=== PATIENT | male | born 1965 | race Two or more races ===

== ENCOUNTER 2020-04-06 07:06 | Inpatient (IN) | payer OTHER ==
[2020-04-06] VITALS (16 sets, daily range): BP systolic 127–154; BP diastolic 76–96
[~2020-04-06] VITALS: Ht 170.2 cm; Wt 106.1 kg
[~2020-04-06 07:06] MED LIST: GEMFIBROZIL600 MG ORAL; LOSARTAN POTASS50 MG ORAL; METFORMIN HCL1000 M1 ORAL; ceFAZolin sod 2 GM in NS 55 ML IVPB ONE
--- NOTE | 2020-04-06 07:20 | Pre-Procedure Note/Attestation ---
Pre-Procedure Note/Attestation Complete Prior to Procedure Planned Procedure: not applicable Procedure Narrative: Anterior cervical discectomy and fusion of C56 and C67 Indications for Procedure Pre-Operative Diagnosis: C56,67 herniation Attestation I attest that I discussed the nature of the procedure; its benefits; risks and complications; and alternatives (and the risks and benefits of such alternatives ), prior to the procedure, with the patient (or the patient's legal insurance verification representative). I attest that, if there was a reasonable possibility of needing a blood transfusion, the patient (or the patient's legal insurance verification representative) was given the [facility] standardized written summary, pursuant to the Tuan Shikha Blood Safety Act ([place] Health and Safety Code # 1645, as amended). I attest that I re-evaluated the patient just prior to the surgery and that there has been no change in the patient's H&P, except as documented below: Angel Mercado MD Apr 06, 2020 07:20
--- NOTE | 2020-04-06 07:21 | Brief Operative Note ---
Immediate Post Operative Note Operative Note Chief Complaint: neck pain and radiculopathy Pre-op Diagnosis: C56,67 herniation Procedure: Anterior cervical discectomy and fusion of C56 and C67 Post-op Diagnosis: same as pre-op Findings: consistent w/pre-op dx studies Surgeon: Rogelio Secretary Administrative Assistant: Jeff Anesthesia: general Specimen: none Complications: none Condition: stable Fluids: IVF Estimated Blood Loss: minimal Drains: none Implant(s) used?: Yes - nuvasive interlock c sz 6 screws 13mmx6 Angel Mercado MD Apr 06, 2020 07:21
[2020-04-06] MEDS ORDERED: HYDROcodone/Acetamin 7.5/325 tab ORAL PRN ×3 (07:30→08:30)
[2020-04-06] MEDS ORDERED: HYDROmorphone 1mg/ml Carpuject IVP PRN (07:30)
[2020-04-06] MEDS ORDERED: Metoclopramide 10mg/2ml Inj IVP PRN (07:30)
[2020-04-06] MEDS ORDERED: Morphine Sulfate 4mg/ml Inj (IV USE ONLY) IV PRN ×2 (07:30)
[2020-04-06] MEDS ORDERED: Naloxone 0.4mg/ml Inj IVP PRN (07:30)
[2020-04-06] MEDS ORDERED: Milk of Magnesia 30ml Ud ORAL PRN (07:30)
[2020-04-06] MEDS ORDERED: HYDROcodone/Acetamin 5/325 tab ORAL PRN ×2 (07:30→08:30)
[2020-04-06] MEDS ORDERED: Chloraseptic Spray 20mL Bottle ORAL PRN (07:30)
[2020-04-06] MEDS ORDERED: Morphine Sulfate 2mg/ml Inj(IV/IM USE ONLY) IV PRN (07:30)
[2020-04-06] MEDS ORDERED: LR 1000ml 1,000 ML IVLG SCH (08:19)
--- NOTE | 2020-04-06 08:23 | Anethesia Preoperative Eval ---
Anesthesia Pre-op PMH/ROS General Date of Evaluation: Apr 06, 2020 Time of Evaluation: 09:19 Anesthesiologist: Cele ASA Score: ASA 3 Mallampati Score Class I : Soft palate, uvula, fauces, pillars visible Class II: Soft palate, uvula, fauces visible Class III: Soft palate, base of uvula visible Class IV: Only hard plate visible Mallampati Classification: Class II Surgeon: Ryan Diagnosis: Neck Pain Surgical Procedure: ACDF C5-6, C6-7 Anesthesia History: none Family History: no anesthesia problems Allergies: Coded Allergies: No Known Allergies (Unverified , 04/03/20) Medications: see eMAR Patient NPO?: Yes Past Medical History Cardiovascular: Reports: HTN, other - HL Endocrine: Reports: DM Other: obesity - BMI 38 PSxH Narrative: R Knee Arthroscopy Anesthesia Pre-op Phys. Exam Physician Exam Constitutional: NAD Neurologic: CN 2-12 intact Cardiovascular: RRR Respiratory: CTA Gastrointestinal: S/NT/ND Airway Exam Mallampati Score: Class II MO: full ROM: limited Teeth: missing, intact Anesthesia Pre-op A/P Risk Assessment & Plan Assessment: ASA 3 Plan: GA, SED, GlideScope Status Change Before Surgery: No Pre-Antibiotics Dru Grams Ancef IV Given Within 1 Hr of Incision: Yes Time Given: 09:51 Brodie Oakley MD Apr 06, 2020 08:23
[2020-04-06] MEDS ORDERED: DiphenhydrAMINE 50mg/ml Inj IVP PRN (08:30)
[2020-04-06] MEDS ORDERED: LORazepam Inj 2mg/ml 1ml IV PRN (08:30)
[2020-04-06] MEDS ORDERED: Hydromorphone 0.5mg/0.5ml inj IVP PRN (08:30)
[2020-04-06] MEDS ORDERED: Sodium Chloride 10ml vial INJ ONE (08:30)
[2020-04-06] MEDS ORDERED: oxyCODONE HCL/Acetaminophen 5/325mg ORAL PRN (08:30)
[2020-04-06] MEDS ORDERED: Atropine Sulfate 0.4mg/ml inj IVP PRN (08:30)
[2020-04-06] MEDS ORDERED: fentaNYL 100 mcg/2 mL IV PRN (08:30)
[2020-04-06] MEDS ORDERED: Midazolam 2mg/2ml Inj IVP PRN (08:30)
[2020-04-06] MEDS ORDERED: Lidocaine 1% MPF 10mg/ml 5ml ONE ×2 (08:30→09:23)
[2020-04-06] MEDS ORDERED: Ketorolac 30mg Inj IV PRN ×2 (08:30)
[2020-04-06] MEDS ORDERED: Acetaminophen (Non formulary) 100 ML IV ONE (08:30)
[2020-04-06] MEDS ORDERED: Meperidine 25mg/0.5ml Inj (FOR RIGORS ONLY) IV PRN (08:30)
[2020-04-06] MEDS ORDERED: Labetalol 5mg/ml 20ml vial IV PRN (08:30)
[2020-04-06] MEDS ORDERED: fentaNYL 100 mcg/2 mL IV ONE ×2 (08:31→10:42)
[2020-04-06] MEDS ORDERED: propofoL 1,000mg/100ml IV ONE (09:00)
[2020-04-06] MEDS ORDERED: Sterile Water Irrig 1000ml IRRIG ONE (09:00)
[2020-04-06] MEDS ORDERED: Neostigmine 1mg/ml 10ml Inj ONE (09:00)
[2020-04-06] MEDS ORDERED: LR 1000ml ONE (09:00)
[2020-04-06] MEDS ORDERED: Rocuronium Bromide 100mg/10ml Inj IV ONE (09:00)
[2020-04-06] MEDS ORDERED: NS Irrig 1000ml ONE (09:00)
[2020-04-06] MEDS ORDERED: Gelfoam Size TOPIC ONE (09:24)
[2020-04-06] MEDS ORDERED: Vancomycin 1gm vial IVPB ONE (09:24)
[2020-04-06] MEDS ORDERED: Thrombin 5000 units TOPIC ONE (09:24)
[2020-04-06] MEDS ORDERED: Bacitracin 50000 Units Vial ONE (09:25)
[2020-04-06] MEDS ORDERED: Bupivacaine w/Epi 0.5% 30ml Vial INJ ONE (09:25)
--- NOTE | 2020-04-06 09:31 | 48 Hour Post Anesthesia Eval ---
Post Anesthesia Evaluation Procedure: ACDF C5-6, C6-7 Date of Evaluation: Apr 06, 2020 Time of Evaluation: 14:34 Blood Pressure Systolic: 143 0: 82 Pulse Rate: 63 Respiratory Rate: 18 Temperature (Fahrenheit): 98 O2 Sat by Pulse Oximetry: 99 Airway: patent Nausea: No Vomiting: No Pain Intensity: 2 Hydration Status: adequate Cardiopulmonary Status: Stable Mental Status/LOC: patient returned to baseline Follow-up Care/Observations: 0 Post-Anesthesia Complications: 0 Follow-up care needed: N/A Brodie Oakley MD Apr 06, 2020 09:31
--- NOTE | 2020-04-06 09:31 | Immediate Post-Op Evaluation ---
Immediate Post-Op Evalulation Immediate Post-Op Evalulation Procedure: ACDF C5-6, C6-7 Date of Evaluation: Apr 06, 2020 Time of Evaluation: 12:28 IV Fluids: 1000 LR Blood Products: 0 Estimated Blood Loss: 50 Urinary Output: 320 Blood Pressure Systolic: 147 Blood Pressure Diastolic: 85 Pulse Rate: 64 Respiratory Rate: 16 O2 Sat by Pulse Oximetry: 100 Temperature (Fahrenheit): 97.6 Pain Score (1-10): 2 Nausea: No Vomiting: No Complications 0 Patient Status: awake, reacts, patent, extubated, none Hydration Status: adequate Dru Grams Ancef IV Given Within 1 Hr of Incision: Yes Time Given: 09:51 Brodie Oakley MD Apr 06, 2020 09:31
[2020-04-06] MEDS ORDERED: Lidocaine 1% Plain 30 ml INJ ONE (11:19)
[2020-04-06] MEDS ORDERED: Glycopyrrolate 0.2mg/ml 1ml Vial ONE (11:23)
[2020-04-06] MEDS ORDERED: Surgicel 4in x 8in TOPIC ONE (11:36)
--- NOTE | 2020-04-06 14:00 | NUR ---
NURSE NOTES: Patient received from PACU via bed to room 312-2, on O2 3LNC, in stable condition. Patient sleeping, arousable to name. VSS. Anterior right neck, dermabond, intact, no drainage noted. Ice compress in place. IVF infusing to LH, site asymptomatic. Bilateral SCDs on. Neuros intact, skin warm, wiggles, pulses palpable, hand grasps/pedal pushes equal 3/5, no NT. Called for IS. Clear liquids provided. Urinal provided and instructed on. Denies pain, SOB, NV at this time. Spouse at bedside. Oriented patient to room, call light and medical equipment. Bed in lowest position, will continue to monitor.
--- NOTE | 2020-04-06 14:26 | NUR ---
CASE MANAGEMENT: INITIAL REVIEW 55YR OLD MALE HERE FOR SCHEDULE SURGERY CC:NECK PAIN AND RADICULOPATHY SI:HERNIATION C56, 67 97.1 63 20 136/76 96% ON RA IS:IN SURGERY NOW ANTERIOR CERVICAL DISCECTOMY AND FUSION OF C56 AND C67 \: 3E MED SURG UNIT DCP: HOME WHEN STABLE PLAN: ENCOURAGE AMBULATION SCD'S WHILE IN BED HYDRATE ADVANCE DIET TOLERATED PAIN CONTROL
--- NOTE | 2020-04-06 14:54 | Diagnostic Imaging Report ---
XRAY C Spine 2-3v CLINICAL HISTORY: Neck pain. COMPARISON: None FINDINGS: Fluoroscopy independent procedure performed for cervical fusion. 37.2 seconds of fluoroscopy time utilized by the ordering physician. Total cumulative dose is 11.58 mGy and 0.99120 Gy.cm2. Total of 5 spot images are obtained . IMPRESSION: FLUOROSCOPY GUIDED PROCEDURE.
[2020-04-06] MEDS: NS w/KCl 20mEq 1000ml 1,000 ML IV SCH (15:08)
--- NOTE | 2020-04-06 16:30 | Operative Note - Dictated ---
DATE OF OPERATION: 04/06/2020 SURGEON: Angel Mercado MD, orthopedic spine surgeon. SENIOR STATISTICAL PROGRAMMER: COLEEN Cohen. PREOPERATIVE DIAGNOSES: 1. Intractable neck pain. 2. Radiculopathy. 3. Herniation, C5-C6, C6-C7. 4. Neural foraminal stenosis C5-C6, C6-C7. 5. Stenosis. POSTOPERATIVE DIAGNOSES: 1. Intractable neck pain. 2. Radiculopathy. 3. Herniation, C5-C6, C6-C7. 4. Neural foraminal stenosis C5-C6, C6-C7. 5. Stenosis. PROCEDURE PERFORMED: 1. Anterior cervical discectomy and fusion of C5-C6, C6-C7 using Nuvasive Interlock-C size 6 mm cage with 1 mL of Osteocel allograft bone and two screws of 13 mm length. 2. Use of intraoperative microscope. 3. Motor evoked potential monitoring. 4. Somatosensory evoked potential monitoring. 5. Supervision and interpretation of fluoroscopy. COMPLICATIONS: None. ANESTHESIA: General. ESTIMATED BLOOD LOSS: Less than 100 mL. INDICATIONS FOR SURGERY: This patient is a 55-year-old male who has a history of intractable neck pain, radiculopathy, herniation, C5-C6, C6-C7, neural foraminal stenosis C5-C6, C6-C7, stenosis. We tried a course of conservative management but despite this course there was still a significant component of persistent, recalcitrant neck pain and arm pain. The MRI demonstrated significant neural foraminal compromise secondary to disc herniations at C5-C6, C6-C7. We had a long discussion with Arnold regarding the risks and benefits of surgery. Our discussion included but was not limited to nonoperative management, chiropractic management, another epidural steroid injection as well definitive management in the form of surgery. We recommended an anterior cervical discectomy and fusion of C5-C6, C6-C7 using Nuvasive Interlock-C size 6 mm cage, with 1 mL of allograft Osteocel bone, and two screws of 13 mm length as final definitive management. We reviewed the risks and benefits of surgery with the patient. Our discussion included a comprehensive review of the clinical issues and the nature of the clinical decision. We reviewed the alternatives, including doing nothing. The patient elected to proceed accordingly with anterior cervical discectomy and fusion of C5-C6, C6-C7 using Nuvasive Interlock-C size 6 mm cage, with 1 mL of allograft Osteocel bone, and two screws of 13 mm length. We had a long discussion regarding the risks, alternatives and benefits of surgery. Our description of the risks included a discussion in person as well as a signed consent which detailed all pertinent risks from the procedure itself. Briefly, our discussion included but was not limited to infection, bleeding, pseudarthrosis, spinal cord injury, neurovascular injury, dural tear, CSF leak, neuropathy, paralysis, permanent weakness/drop foot/drop arm, paresthesias, blindness, palsy and weakness. The patient understood there may be a need for a revision surgery or additional procedures. Approach-related complications including dysphonia, dysphagia, blindness, permanent vocal cord and neural injury, hematoma, swallowing and breathing difficulty. Medical complications were reviewed including liver, kidney, shock, cardiopulmonary failure, anesthesia complications including , swelling, damage to the musculature, larynx/voice injury or loss, esophagus/throat, trachea, blood vessels and muscles/muscular sprain and lungs/pneumothorax during this surgical procedure; injury to deeper structures may be temporary or permanent. After this review of risks, the patient understood these and elected to proceed. A written and verbal consent was given. We discussed the pros and cons of all the alternatives. We discussed the uncertainties associated with the decision. Afterwards I assessed the patient's understanding and explored their preferences. All questions were answered and no guarantees were given. Medical clearance was obtained prior to surgery. INTRAOPERATIVE FINDINGS: At C5-C6: There was a large disc herniation with significant encroachment on the neural foramina and lateral recess, which is predominantly left sided. This disc herniation was first encountered after I visualized a radial tear on the left side, which was approximately 10 degrees in a cephalad to caudad direction. This tear itself was probed with a micro-set 1-B curette, which was raised to the tail end of the larger nuclear fragment, which itself was encroaching on the neural foramina posteriorly. The disc itself was soft. It was not desiccated. It was not dehydrated in anyway. That was spongy looking combination with the tear that makes me believe this is more traumatic in nature. There were anterior osteophytes on the C5 inferior vertebral body anteriorly. At C6-C7: At C6-C7, the disc itself was soft and spongy and not desiccated or dehydrated or crumbly. The herniation was left-sided as visualized in the left-sided radial tear along the posterior longitudinal ligament. This tear was probed with a micro-set 1-B curette and upon probing of this tear, I noticed a larger tail end of a nuclear fragment. This fragment was seemed to be across the nucleus pulposus and was encroaching on the left neural foramina . This was dissected with a combination of Deckers and Kerrison rongeurs. DESCRIPTION OF PROCEDURE: Under the benefit of general endotracheal anesthesia and with the assistance of the entire operative team, the patient was moved from the [facility] onto the operative table in the supine position. The head was secured and carefully positioned appropriately. Bilateral arms were secured with Gelpads and foam and all bony prominences were padded. For the bilateral lower extremities SCD and SERVANDO hose were placed for DVT prophylaxis. A surgical timeout was called which corroborated our planned procedure of anterior cervical discectomy and fusion of C5-C6, C6-C7 using Nuvasive Interlock-C size 6 mm cage, with 1 mL of allograft Osteocel bone, and two screws of 13 mm length. Preoperative antibiotics were administered within 30 minutes of the incision for antibiotic prophylaxis. Using lateral fluoroscopic radiography, the operative levels were delineated. Next the wound was prepped and draped with Chlorhexidine and sterile drapes. An incision was based on lateral fluoroscopy and we centered our incision at the C5-C6, C6-C7 interspace and next using a standard Chaparro-Olmstead anterior based approach the incision was taken down through the skin and subcutaneous tissues until the vertebral bodies and their corresponding disc spaces were visualized. A needle was placed into the interspace to confirm placement of the operative interspace and we performed the remainder of procedure under microscopic visualization. Next, using a bipolar and Bovie cautery to ensure meticulous hemostasis, the longus colli was mobilized bilaterally and retractors were placed deep to the longus colli bilaterally to address retraction. Next we turned our attention to the radical anterior discectomy. This was initially performed at C5-C6. First by using a 15 blade scalpel followed by narrow pituitaries and a micro-sect 5-B curette was used to denude the endplate of all cartilaginous tissue. Next using a Midas David AM8 drillbit the partial vertebrectomy was performed in a kebh-kh-ukvn and layer by layer fashion, and ultimately the posterior uncinate joints bilaterally and posterior osteophytic lips and margins causing central and lateral impingement were carefully denuded until visualization of the posterior longitudinal ligament was possible. An endplate preparation was performed in the exact same fashion using an intervertebral blacktop spreader, sequential distraction was obtained throughout the disc space. We saw a tear/rent in the PLL and this was carefully mobilized and dissected using a micro-set 1-B curet until we visualized a broad-based disc herniation with compression of the spinal cord as well as neural foramina which was left more than right sided. This neural foraminal compression was carefully resected using a Kerrison-1 and Kerrison-2 rongeurs until complete decompression of the spinal cord was visualized and complete decompression of the neural foramina and nerve root therein as well as the axilla and lateral margin of the nerve root was visualized and subsequently completely decompressed. The family was notified at one hour intervals throughout the procedure to provide for consistent updates. Next we turned our attention to the radical anterior discectomy at the C6-C7 level. First by using a 15 blade scalpel followed by narrow pituitaries and a micro-sect 5-B curette was used to denude the endplate of all cartilaginous tissue. Next using a Introhiveas David AM8 drillbit the partial vertebrectomy was performed in a vudy-[id number]-jgbv and layer by layer fashion, and ultimately the posterior uncinate joints bilaterally and posterior osteophytic lips and margins causing central and lateral impingement were carefully denuded until visualization of the posterior longitudinal ligament was possible. An endplate preparation was performed in the exact same fashion using an intervertebral blacktop spreader, sequential distraction was obtained throughout the disc space. We saw a tear/rent in the PLL and this was carefully mobilized and dissected using a micro-set 1-B curet until we visualized a broad-based disc herniation with compression of the spinal cord as well neural foramina which was left more than right sided. This neural foraminal compression was carefully resected using a Kerrison-1 and Kerrison-2 rongeurs until complete decompression of the spinal cord was visualized and complete decompression of the neural foramina and nerve root therein as well as the axilla and lateral margin of the nerve root was visualized and subsequently completely decompressed. We next turned our attention towards trialing our implant within the disc space. We initially tried size 5 and afterwards size 6 trial from the Nuvasive Interlock-C size 6 mm cage, with 1 mL of allograft Osteocel bone, and two screws of 13 mm length at each level, which appeared to be appropriate under AP and lateral fluoroscopy as well as in terms of its height, depth, width and lack of toggle. The PEEK polyetheretherketone interbody cages were then both packed with allograft bone from Osteocel and local autograft bone matrix. Next these were then carefully advanced and secured into their intervertebral spaces under direct visualization and with supervision of AP and lateral fluoroscopic views. We next turned our attention towards plating. Plating was performed with Nuvasive Interlock-C. A total of two screws, size 13 mm in length were inserted and confirmed under AP and lateral fluoroscopy and confirmed to be in excellent position. This was then performed at the next level, C6-C7. Plating was performed with Nuvasive Interlock-C. A total of two screws, size 13 mm in length were inserted and confirmed under AP and lateral fluoroscopy and confirmed to be in excellent position. After a finger sweep we confirmed removal of all sponges. The retractor was removed and we next turned our attention to meticulous hemostasis with FloSeal and bipolar cautery. After the sponge and needle count was again found to be correct with our second count, we next turned our attention to closure. The wound was again copiously irrigated with antibiotic impregnated saline. Closure consisted of 4-0 clear nylon for the platysma, and 6-0 clear nylon for the superficial skin. Final skin closure and dressings consisted of Dermabond. Prior to final closure, a final radiograph was obtained which demonstrated the hardware is intact with excellent position throughout. The patient tolerated the procedure well. The patient was carefully extubated after the conclusion of surgery. We discussed the findings of the surgery with the family upon completion of the case. At this point the patient was transferred to the spine floor for further observation. Angel Mercado M.D. DR: CYRUS JOB#: [id number] CC:
[2020-04-06] MEDS: ceFAZolin sod 1 GM in D5W 55 ML IV SCH (17:49)
[2020-04-06] MEDS: Docusate 100mg cap ORAL SCH (17:49)
--- NOTE | 2020-04-06 18:01 | NUR ---
NURSE NOTES: Home medications reconciled with Dr. Cabrales, all home medications ordered, as well as Insulin Sliding Scale (medium) with AC+HS bedside glucose checks, patient and spouse updated, verbalized understanding.
--- NOTE | 2020-04-06 18:30 | NUR ---
NURSE NOTES: Patient had small emesis (25 ml) , medicated with Zofran, subsided. Pain 8/10, medicated with Dilaudid 1 mg IV, pain improved to 6/10, will continue to monitor.
--- NOTE | 2020-04-06 19:47 | NUR ---
HAND-OFF: Report given to Karla GRUBBS, patient stable. Addendum: 04/06/20 at 2031 by Amara Osuna RN Endorsed patient has not voided post op yet, urinal has been provided and instructed on, informed patient spouse to let the nurse know once patient has voided and not to discard urine, verbalized understanding)
--- NOTE | 2020-04-06 19:52 | NUR ---
NURSE NOTES: Received report from HUMERA Maloney. Pt is awake, lying semi-calvin's; comfortably resting. No signs of acute distress noted. Pt denies any pain at this time. AOx4; able to make needs known. Checked IV site, line, and rate; patent and running. Ice pack on posterior and anterior of neck noted. No erythema, bleeding, or infiltration noted. Pt on 3 L NC. IS noted at bedside; pt educated on how to use. Bed at lowest position. Brakes on. Siderails up x3. Call light within reach. Will continue to monitor.
[2020-04-06] MEDS: Losartan 50mg tab ORAL SCH (20:26)
[2020-04-06] MEDS: metFORMIN 500mg tab ORAL SCH (20:26)
[2020-04-06] MEDS: NovoLOG Insulin Flexpen SUBQ SCH (20:28)
--- NOTE | 2020-04-06 21:31 | NUR ---
nurse's notes: patient has expressed his frustration that his can not stay overnight. according to the patient, nobody has explained to them pre-op about the Department of Health's directive regarding limiting visiting hours. as they are from [place], they were just dropped off here at the hospital, and has no means to drive back home. spoke with hany rivero, regarding this situation. per hany katz, we have to follow strictly TAMI to reduce spread of covid-19. this was explained to the patient SYD Benitez.
[2020-04-07] VITALS: BP 125/76
[2020-04-07] MEDS: ceFAZolin sod 1 GM in D5W 55 ML IV SCH ×2 (01:20→11:34)
[2020-04-07] MEDS: NS w/KCl 20mEq 1000ml 1,000 ML IV SCH (01:20)
[2020-04-07 03:21] VITALS: BP 117/77
[2020-04-07] MEDS: NovoLOG Insulin Flexpen SUBQ SCH ×2 (06:46→11:51)
--- NOTE | 2020-04-07 07:19 | NUR ---
HAND-OFF: Report given to HUMERA Padgett. Pt is awake and in stable condition. Plan of care endorsed.
--- NOTE | 2020-04-07 07:54 | NUR ---
NURSE NOTES: Patient awake and alert and oriented,respirations unlabored.Noted Dermabond dressing to the neck area clean.patient sitting up and eating breakfast.No complaints of difficulty swallowing.Patient able to move lower extremities.IV fluids infusing as ordered.bED ALARM IS ON,CALL LIGHT WITHIN REACH.
[2020-04-07 08:26] VITALS: BP 124/71
[2020-04-07] MEDS: Docusate 100mg cap ORAL SCH (08:29)
[2020-04-07] MEDS: Losartan 50mg tab ORAL SCH (08:30)
[2020-04-07] MEDS: metFORMIN 500mg tab ORAL SCH (08:30)
--- NOTE | 2020-04-07 09:34 | General Progress Note ---
Assessment/Plan Assessment/Plan: neck pain and radiculopathy C56,67 herniation Anterior cervical discectomy and fusion of C56 and C67 PLAN 1. incentive spirometry 2. SCD 3. PT evaluation and therapy 4. Hydration 5. Pain management 6. discharge once stable with outpatient follow up Subjective Allergies: Coded Allergies: No Known Allergies (Unverified , 04/03/20) Subjective asked to follow up postop ++pain Objective Last 24 Hour Vital Signs Date Time Temp Pulse Resp B/P (MAP) Pulse Ox O2 Delivery O2 Flow Rate FiO2 04/07/20 08:30 124/71 04/07/20 08:26 98.6 69 20 124/71 (88) 96 04/07/20 03:21 98.6 86 20 117/77 (90) 98 04/07/20 00:00 98.6 82 20 125/76 (92) 95 04/06/20 21:00 97.9 71 18 132/77 (95) 99 04/06/20 21:00 Nasal Cannula 3.0 04/06/20 20:26 132/77 04/06/20 17:00 74 16 127/81 (96) 98 04/06/20 16:00 98.3 72 16 129/81 (97) 98 04/06/20 15:00 72 16 130/88 (102) 99 04/06/20 14:30 69 16 137/78 (97) 99 04/06/20 14:00 97.4 69 20 142/78 (99) 99 04/06/20 13:42 97.9 71 15 143/77 98 Nasal Cannula 3 04/06/20 13:27 67 19 138/76 98 Nasal Cannula 3 04/06/20 13:12 65 14 151/83 100 Simple Mask 6 04/06/20 12:57 66 15 154/91 100 Simple Mask 6 04/06/20 12:44 67 14 149/96 100 Simple Mask 6 04/06/20 12:34 61 14 149/95 100 Simple Mask 6 04/06/20 12:24 61 16 151/92 100 Simple Mask 6 04/06/20 12:19 63 15 142/82 100 Simple Mask 6 04/06/20 12:15 63 18 99 04/06/20 12:14 97.0 62 12 147/85 100 Simple Mask 6 04/06/20 12:14 64 16 100 Intake and Output 04/06/20 04/07/20 19:00 07:00 Intake Total 1800 ml 700 ml Output Total 75 ml 2475 ml Balance 1725 ml -1775 ml Intake Oral 200 ml 600 ml IV Total 1600 ml 100 ml Output Urine Total 1975 ml Emesis 25 ml 500 ml Estimated Blood Loss 50 ml # Voids 1 Laboratory Tests 04/06/20 20:24: POC Whole Blood Glucose 213H 04/07/20 05:14: POC Whole Blood Glucose 192H Height (Feet): 5 Height (Inches): 7.00 Weight (Pounds): 234 Objective WDWN NAD clear breath sounds bilaterally without rhonchi or wheeze [id number] without MRG NABS nontender no HSM no CCE nonfocal Juan Pablo Cabrales MD Apr 07, 2020 09:34
--- NOTE | 2020-04-07 10:09 | NUR ---
NURSE NOTES: Seen and evaluated by and ok to discharge patient today. Order noted and carried out.
[2020-04-07 12:00] VITALS: BP 135/71
--- NOTE | 2020-04-07 12:50 | NUR ---
CASE MANAGEMENT: REVIEW 04/07/2020 SI:C56,67 herniation. POD #1 Anterior cervical discectomy and fusion of C5-C6, C6-C7 VS: T 98.6 HR 69 RR 20 B/P 124/71 SATS 96% ON 3L/NC LABS: GLU 192 IS:KCL IV @ 100 ML/HR METFORMIN PO BID LOPID PO QD INSULIN ASPART SUBQ AC/HS MED/SURG
[2020-04-07] MEDS ORDERED: NORCO 10-325 T1 EACH ORAL (13:51)
[2020-04-07] MEDS ORDERED: CYCLOBENZAPRINE10 MG ORAL (13:52)
--- NOTE | 2020-04-07 14:12 | NUR ---
PT NOte PT javier completed, treatment initiated. Patient c/o dizziness upon sitting at the EOB and all throughout gait training. Patient needs PT to instruct on HEP's and safe bed mobility/transfer techniques and improve safety in gait to enable him to return home. Addendum: 04/07/20 at 1413 by MANNY DIAS PT Amended: Links added.
[2020-04-07] MEDS ORDERED: Tubing IV Secondary IV ONE (14:19)
--- NOTE | 2020-04-07 14:22 | NUR ---
NURSE NOTES: Discharged patient with family member in stable condition. Discharge instruction given to patient and verbalized understanding. Belonging and prescription given to patient. Instructed to follow up with MD and verbalized understanding. IV and ID removed. Patient ambulated out with all personal belongings with steady gait.
--- NOTE | 2020-04-09 18:52 | Diagnostic Imaging Report ---
XRAY C Spine 2-3v CLINICAL HISTORY: Neck pain. COMPARISON: None FINDINGS: Fluoroscopy independent procedure performed for cervical fusion. 37.2 seconds of fluoroscopy time utilized by the ordering physician. Total cumulative dose is 11.58 mGy and 0.56594 Gy.cm2. Total of 5 spot images are obtained . IMPRESSION: FLUOROSCOPY GUIDED PROCEDURE.
--- NOTE | 2020-04-09 19:12 | Discharge Summary ---
Discharge Summary Hospital Course Date of Admission Apr 06, 2020 at 07:13 Date of Discharge Apr 07, 2020 at 14:20 Admitting Diagnosis neck pain, cervical radiculopathy Reason for Hospitalization: elective surgery HPI Arnold He is a 55 year old male who was admitted on Apr 06, 2020 at 07:13 for Herniated Nucleus Pulposus,Pain,Radiculopathy. Patient was admitted for elective surgery Consultations Dr Cabrales -IM/pulmo Procedures POSTOPERATIVE DIAGNOSES: 1. Intractable neck pain. 2. Radiculopathy. 3. Herniation, C5-C6, C6-C7. 4. Neural foraminal stenosis C5-C6, C6-C7. 5. Stenosis. s/p 04/06/[address] Mercado 1. Anterior cervical discectomy and fusion of C5-C6, C6-C7 using Nuvasive Interlock-C size 6 mm cage with 1 mL of Osteocel allograft bone and two screws of 13 mm length. 2. Use of intraoperative microscope. 3. Motor evoked potential monitoring. 4. Somatosensory evoked potential monitoring. 5. Supervision and interpretation of fluoroscopy. Hospital Course status post surgery course of recovery uneventful initially IV fluids s/p perioperative antibiotic neurovascular status closely monitored, remained stable incision clean dry and intact pain management was addressed pain was controlled remained hemodynamically stable ambulated with PT fall precautions maintained; safe for ambulation use of incentive spirometry was encouraged while in the bed Chloraseptic lozenges and spay provided for comfort tolerated diet , IV fluids discontinued home medications continued voided freely bowel regimen instituted patient was stable for discharge discharge instructions provided follow up with surgeon in the office as advised FINAL DIAGNOSES: 1. Intractable neck pain. 2. Radiculopathy. 3. Herniation, C5-C6, C6-C7. 4. Neural foraminal stenosis C5-C6, C6-C7. 5. Stenosis. 6. s/p Anterior cervical discectomy and fusion of C56 and C67 Discharge Medications Continued Medications: Cyclobenzaprine Hcl* (Flexeril*) 10 Mg Tablet 10 MG ORAL BID PRN for Muscle Spasms, #90 TAB (This prescription has been renewed) Gemfibrozil (Gemfibrozil*) 600 Mg Tablet 600 MG ORAL DAILY for PRESCIBED, TAB 0 Refills (This prescription has been renewed) Hydrocodone Bit/Acetaminophen 10-325* ([place] 10-325*) 1 Each Tablet 1 TAB ORAL Q8HR PRN for For Pain, #90 TAB 0 Refills (This prescription has been renewed) PRN PAIN Losartan Potassium* (Losartan Potassium*) 50 Mg Tablet 50 MG ORAL DAILY for PRESCRIBED, TAB (This prescription has been renewed) Metformin Hcl* (Metformin Hcl*) 1,000 Mg Tablet 1000 MG ORAL BID for PRESCRIBED, TAB (This prescription has been renewed) Discharge Condition Upon Discharge: stable Discharge Vital Signs Last Vital Signs Date Time Temp Pulse Resp B/P (MAP) Pulse Ox O2 Delivery O2 Flow Rate FiO2 04/07/20 12:00 98.2 72 18 135/71 (92) 96 04/07/20 09:00 Nasal Cannula 3.0 Discharge Disposition Patient was discharged home Discharge Instructions Discharge Instructions Special Instructions I have been assigned to complete a D/C Summary on this account. I was not involved in the patient management Xiao Richard NP Apr 09, 2020 19:12
== END 2020-04-07 14:20 | disposition home or self-care (01) | DRG 473 ==
LOC: SDSOVERFLO 07:13 → 3E 14:12
PROC: 0RG20A0 Fusion of 2 or more Cervical Vertebral Joints with Interbody Fusion Device, Anterior Approach, Anterior Column, Open Approach (ICD-10-PCS; principal; 2020-04-06 09:30)
PROC: 0RB30ZZ Excision of Cervical Vertebral Disc, Open Approach (ICD-10-PCS; principal; 2020-04-06 09:30)
DX: M50.122 Cervical disc disorder at C5-C6 level with radiculopathy (principal); M48.02 Spinal stenosis, cervical region; V89.2XXS Person injured in unspecified motor-vehicle accident, traffic, sequela; I10 Essential (primary) hypertension; E11.9 Type 2 diabetes mellitus without complications; E78.00 Pure hypercholesterolemia, unspecified; Z79.84 Long term (current) use of oral hypoglycemic drugs
CPT/HCPCS: 36415; 72040; 76000; 82962; 86850; 86900; 86901; 87081; 94003; 94150; J1815; J2180; J2250; J2405; J2710; J2765